=== PATIENT | female | born 1945 | race Caucasian/White ===

== ENCOUNTER 2022-08-25 10:27 | Outpatient (CLI) | payer MEDICARE | END 2022-08-25 10:28 | disposition home or self-care (01) | LOC: CSHRAD 10:27 | PROVIDERS: ATTEND Specialist | DX: M54.50 Low back pain, unspecified (principal); M47.816 Spondylosis without myelopathy or radiculopathy, lumbar region | CPT/HCPCS: 72100 ==

== ENCOUNTER 2024-12-14 12:59 | Outpatient (CLI) | payer MEDICARE | END 2024-12-14 13:00 | disposition home or self-care (01) | LOC: CSHULT 12:59 | PROVIDERS: ATTEND Specialist | DX: E78.5 Hyperlipidemia, unspecified (principal); I65.22 Occlusion and stenosis of left carotid artery | CPT/HCPCS: 93880 ==